=== PATIENT | female | born 1985 | race Caucasian/White ===

== ENCOUNTER 2016-08-12 13:20 | Outpatient (RCR) | payer OTHER ==
[~2016-08-12 13:20] MED LIST: AMOXICILLIN 50500 MG PO; CORTISPORIN OTI10 M1 OT; FLEXERIL 1010 MG/TAB PO; MOTRIN 600600 MG/TAB PO; MULTIPLE VITAMI1 CAP PO; NORCO 325 MG-51 TAB PO; PERCOCET 325 MG1 TA2 PO; SYNTHROID 0.0.025 MG PO; SYNTHROID0.088 MG/T PO
== END 2016-09-22 09:43 | disposition still patient (30) ==
LOC: WSPT 13:20
DX: M54.5 Low back pain (principal); M54.16 Radiculopathy, lumbar region

== ENCOUNTER 2018-12-26 20:04 | Emergency (ER) | payer MEDICAID ==
[~2018-12-26] VITALS: Ht 170.2 cm; Wt 119.5 kg
[2018-12-26 20:09] VITALS: BP 132/83; TEMP 99.2
[2018-12-26 21:50] LABS: BASO % 0.3 % (0.0-2.0); EOS # 0.2 (0.0-0.7); GRAN # 3.1 (1.4-6.5); GRAN % 48.8 % (42.2-75.2); LYMPH # 2.4 (1.2-3.4); LYMPH % 37.9 % (20.0-51.0); MEAN CELL VOLUME 97 fl (80.0-100.0); MEAN CORPUSCULAR HEMOGLOBIN 33 pg (27.0-31.0); MEAN CORPUSCULAR HGB CONC 34 g/dl (33.0-37.0); MEAN PLATELET VOLUME 9.3 fl (7.4-10.4); MONO # 0.6 (0.1-0.6); MONO % 9.8 % (1.7-9.3); PLATELET COUNT 207 K/mm3 (130-400); RED BLOOD COUNT 3.92 M/mm3 (4.10-5.30); REDCELL DISTRIBUTION WIDTH-CV 12.9 % (11.5-14.5)
[2018-12-26] MEDS ORDERED: ZITHROMAX 250M250 MG PO (22:32)
[2018-12-26] MEDS ORDERED: PREDNISONE20 MG PO (22:32)
[2018-12-26 22:52] VITALS: PULSE 91
== END 2018-12-26 22:53 | disposition home or self-care (01) ==
LOC: COL.ER 20:04
PROVIDERS: Nurse Practitioner
DX: J20.9 Acute bronchitis, unspecified (principal); E07.9 Disorder of thyroid, unspecified; F17.210 Nicotine dependence, cigarettes, uncomplicated; Z88.1 Allergy status to other antibiotic agents; Z87.81 Personal history of (healed) traumatic fracture
CPT/HCPCS: J7512